=== PATIENT | female | born 1980 | race Caucasian/White ===

== ENCOUNTER 2017-08-16 19:59 | Emergency (ER) | payer OTHER ==
[~2017-08-16] VITALS: Ht 167.6 cm; Wt 78.9 kg
[~2017-08-16 19:59] MED LIST: ADVAIR 100-501 EACH INH; ADVAIR 250-501 EACH INH; ALBUTEROL1.25 MG/1 INH/SOL; BENTYL10 M1 PO; BUPROPION HCL150 MG PO; CYCLOBENZAPRINE5 M2 PO; HYDROCORTISONE2.52 TOP; MEDROL DOSEPAK1 PAC PO; MOTRIN800 MG PO; MULTIVITAMINS1 EAC9 PO; PANTOPRAZOLE SO40 MG PO; PREDNISONE 10MG10 M1 PO; PROAIR HFA8.5 GM INH; ROBITUSSIN W/CO10 ML PO; TESSALON PERLE100 M1 PO; TESSALON PERLE100 MG PO; VIBRAMYCIN 100100 MG PO; VITAMIN B-121000 MC3 PO; ZITHROMAX Z-PA250 M1 PO; ZITHROMAX250 M2 PO; ZOFRAN ODT4 M1 SL
[2017-08-16 20:29] VITALS: BP 114/76
[2017-08-16 20:51] LABS: ABSOLUTE BASOPHIL COUNT 0 /CUMM (0.0-0.2); ABSOLUTE EOSINOPHIL COUNT 0.4 /CUMM (0.0-0.7); ABSOLUTE GRANULOCYTE CT 4.6 /CUMM (1.4-6.5); ABSOLUTE LYMPH COUNT 3.1 /CUMM (1.2-3.4); ABSOLUTE MONOCYTE COUNT 0.5 /CUMM (0.10-0.60); BASOPHIL % 0.5 % (0.0-2.0); EOSINOPHIL % 4.3 % (0-5); GRANULOCYTE % 53.1 % (42.2-75.2); HEMATOCRIT 40.4 % (37-47); MEAN CORPUSCULAR HGB 29.5 PG (27.0-31.0); MEAN CORPUSCULAR HGB CONC 33.6 G/DL (33.0-37.0); MEAN PLATELET VOLUME 7.1 FL (7.4-10.4); PLATELET COUNT 409 /CUMM (130-400); RBC DISTRIBUTION WIDTH 13.8 % (11.5-14.5); WHITE BLOOD CELL COUNT 8.6 /CUMM (4.8-10.8)
--- NOTE | 2017-08-16 22:42 | ED GI/GU/ABDOMINAL COMPLAINT ---
History of Present Illness General Chief Complaint: Abdominal Pain/Flank Pain Stated Complaint: SENT BY WALKIN FOR LOWER ABD PAIN Source: patient, old records Exam Limitations: no limitations Vital Signs & Intake/Output Vital Signs & Intake/Output Vital Signs Date Time Temp Pulse Resp B/P B/P Pulse O2 O2 Flow FiO2 Mean Ox Delivery Rate 08/16 2028 96.5 77 20 114/76 97 Room Air ED Intake and Output 08/17 0000 08/16 1200 Intake Total 1000 Output Total Balance 1000 Intake, IV 1000 Patient 174 lb Weight Allergies Coded Allergies: perfume (Severe, RASH FROM `SCENTED SOAPS' 11/13/16) soap (Severe, RASH FROM `SCENTED SOAPS' 11/13/16) moxifloxacin (PT DOESNT REMEMBER 11/13/16) Penicillins (Severe, GI UPSET 11/13/16) amoxicillin (Severe, DIARRHEA, FEVER, VOMITING HOSPITALIZED FROM AUGMENTIN 03/05) clavulanic acid (From AUGMENTIN) (Severe, GI UPSET; DIARRHEA, FEVER, VOMITING, HOSPITALIZED FROM AUGME 03/05/17) Reconcile Medications Albuterol Sulfate (Proair Hfa) 90 MCG HFA.AER.AD 2 PUF INH AD PRN ASTHMA ( Reported) Albuterol Sulfate 1.25 MG/3 ML VIAL.NEB 1 Vial INH/DEMI Q4-6 PRN SOB Azithromycin (Zithromax) 250 MG TABLET 1 DP PO AD BRONCHITIS 2 the first day followed by 1 for days 2-5 Benzonatate (Tessalon Perle) 100 MG CAPSULE 1 CAP PO TID PRN COUGH Cyanocobalamin (Vitamin B-12) (Unknown Strength) TABLET (Unknown Dose) PO DAILY SUPPLEMENT (Reported) Fluticasone-Salmeterol (Advair 100-50 Diskus) 100 MCG-50 MCG/DOSE BLST.W.DEV 1 PUF INH BID ASTHMA Fluticasone/Salmeterol (Advair 250-50 Diskus) 250 MCG-50 MCG/DOSE BLST.W.DEV 1 PUF INH BID ASTHMA (Reported) Magnesium Citrate 296 ML SOLUTION 296 ML PO ONCE constipation Multiple Vitamin (Multivitamins) 1 EACH TABLET 1 TAB PO DAILY SUPPLEMENT ( Reported) Triage Note: PT SENT TO ED BY WALK IN FOR LOW ABDOMINAL PAIN, R>L "ALL DAY" ALSO C/O LOW BACK PAIN, +NAUSEA. STATES HAD UA DONE AT WALK IN, WAS TOLD WAS NEGATIVE, BUT STATES FEELS "A LOT OF PRESSURE IN LOW ABDOMEN" STATES ALSO HAS SOME RUQ [AIN WELL. PMH OF OVARIAN CYSTS Triage Nurses Notes Reviewed? yes ? N Is pt currently ? No Onset: Abrupt Duration: day(s): (1), constant, waxing and waning Timing: recent history Quality/Severity: cramping, fullness Severity Numbers: 6 Location: left lower quadrant, right lower quadrant Radiation: back Activities at Onset: none Sexually Active: Yes No Modifying Factors: none Associated Symptoms: DENIES HPI: 37-year-old female with history of ovarian cyst depression presents to the ER for evaluation complaining of bilateral lower quadrant abdominal pain radiating into her back associated nausea since today she went to the walk-in center advised her to come to the ER. She is not taken anything for her symptoms. She states this feels similar to when she's had ovarian cysts before. She has not taken anything for her pain. No association with eating or drinking. No urinary urgency frequency dysuria. Her last menstrual cycle was 3 weeks ago. No vaginal bleeding or discharge. She is sexually active (Joaquin Comer) Past History Travel History Traveled to [place] past 21 day No Medical History Any Pertinent Medical History? 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 No (Joaquin Comer) Review of Systems Review of Systems Constitutional: Reports: see HPI. Comments Review of systems: See HPI, All other systems negative. Constitutional, no chills no fever, no malaise HEENT: no sore throat no congestion, no ear pain Cardiovascular: No chest pain , no palpitation Skin: no rashes, no change in skin Respiratory: No dyspnea no cough no sputum GI: No nausea no vomiting, no diarrhea Muscle skeletal: No joint pain, no back pain, no neck pain, Neurologic: , no headache Heme/endocrine: No bruising Immunology: No lymphadenopathy (Joaquin Comer) Physical Exam Physical Exam General Appearance: well developed/nourished, no apparent distress, alert, awake Gastrointestinal: soft, non-tender Comments: Well-developed well-nourished person in no acute distress HEENT: Normal EENT exam; PERRL, EOMI, HEAD is atraumatic. moist mucous membranes. Neck: Supple, normal range of motion Back: Nontender, no CVA tenderness. Full range of motion Cardiovascular: Regular rate and rhythms no murmurs Respiratory: No respiratory distress. Patient speaking in full complete sentences. Breath sounds clear to auscultation bilaterally: NO W/R/R Abdomen: Soft, diffuse negative Rovsing's negative drop hammer operator helper sign, no appreciable organomegaly. Normal bowel sounds. No rebound/guarding Extremity: No edema, full range of motion of extremities Neuro: Alert oriented x3, motor sensory normal, There were no obvious focal neurologic abnormalities. Skin: No appreciable rash on exposed skin, skin is warm and dry. Psych: Mood and affect is normal, memory and judgment is normal. Core Measures ACS in differential dx? No Sepsis Present: No Sepsis Focused Exam Completed? No (Joaquin Comer) Progress Differential Diagnosis: appendicitis, biliary colic, bowel obstruction, colon cancer, cholecystitis, diverticulitis, ectopic , hepatitis, hernia, inflamm bowel dis, intrauterine , kidney stone, ovarian cyst, ovarian torsion, pancreatitis, peptic ulcer, PUD/GERD, perforated viscous, SBO, threatened AB, UTI/pyelo Plan of Care: Orders Procedure Date/time Status URINALYSIS 08/16 2034 Complete LIPASE 08/16 2034 Complete HUMAN BETA HCG SCREEN 08/16 2034 Complete COMPREHENSIVE METABOLIC PANEL 08/16 2034 Complete CBC WITHOUT DIFFERENTIAL 08/16 2034 Complete AMYLASE 08/16 2034 Complete Laboratory Tests 08/16/172044: Urine Color YEL, Urine Clarity CLEAR, Urine pH 7.0, Ur Specific [place] 1.015, Urine Protein NEG, Urine Ketones NEG, Urine Nitrite NEG, Urine Bilirubin NEG, Urine Urobilinogen 0.2, Ur Leukocyte Esterase NEG, Ur Microscopic EXAM NOT REQUIRED, Urine Hemoglobin NEG, Urine Glucose NEG 08/16/172041: Anion Gap 9, Estimated GFR > 60, BUN/Creatinine Ratio 16.7, Glucose 91, Calcium 9.7, Total Bilirubin 0.4, AST 15, ALT 19, Alkaline Phosphatase 71, Total Protein 6.9, Albumin 4.2, Globulin 2.7, Albumin/Globulin Ratio 1.6, Amylase 50, Lipase 122, Total Beta HCG NEGATIVE, CBC w Diff NO MAN DIFF REQ, RBC 4.60, MCV 88.0, MCH 29.5, MCHC 33.6, RDW 13.8, MPV 7.1 L, Gran % 53.1, Lymphocytes % 35.8, Monocytes % 6.3, Eosinophils % 4.3, Basophils % 0.5, Absolute Granulocytes 4.6, Absolute Lymphocytes 3.1, Absolute Monocytes 0.5, Absolute Eosinophils 0.4, Absolute Basophils 0 Labs ordered patient medicated with toradol 30 mg IV CAT scan ordered 2340 Patient reports to feeling improved with Toradol. I discussed with the patient at length all of their results. I had an extensive conversation regarding need for close follow up with their primary care physician this week as well as return precautions. I answered all of their questions, they feel comfortable with the plan and follow-up care. I discussed with the patient/family the medications that they will receive. I gave them signs and symptoms that could indicate an adverse reaction. I have advised them to limit their activities until they can see how they respond to the medication. Diagnostic Imaging: Viewed by Me: CT Scan. Discussed w/RAD: CT Scan. Radiology Impression: PATIENT: MARCELO BLANKENSHIP PRESENT AGE: 37 PATIENT ACCOUNT NO: [id number] : 80 LOCATION: [facility] ORDERING PHYSICIAN: Joaquin MURILLO SERVICE DATE: 08/16/17 EXAM TYPE: CAT - CT ABD & PELVIS W IV CONTRAST EXAMINATION: CT ABDOMEN AND PELVIS WITH CONTRAST CLINICAL INFORMATION: Right lower quadrant and left lower quadrant abdominal pain. COMPARISON: 11/14/2016. TECHNIQUE: Multidetector volumetric imaging was performed of the abdomen and pelvis following IV administration of 95 mL of Optiray 320 intravenous contrast. Sagittal and coronal reformatted images were obtained on the technologist's workstation. DLP: 322 mGy-cm FINDINGS: LUNG BASES : The visualized lung bases are unremarkable. LIVER, GALLBLADDER, AND BILIARY TREE: The liver is normal in size, shape, and attenuation. No focal hepatic lesion or biliary ductal dilatation is present. The gallbladder is unremarkable with no evidence of radiopaque gallstones, gallbladder wall thickening, or obvious pericholecystic inflammatory changes. PANCREAS: Unremarkable. SPLEEN: Unremarkable. ADRENAL GLANDS: Unremarkable. KIDNEYS AND URETERS: The kidneys are normal in size, shape, and attenuation. No hydronephrosis, hydroureter, or calculi seen. No perinephric stranding. BLADDER: Unremarkable. GASTROINTESTINAL TRACT: The stomach is unremarkable. The small bowel is normal in caliber. There is no obstruction. There is a normal appendix. No colonic wall thickening or inflammatory change. Mild to moderate colonic stool burden. No free air or free fluid. ABDOMINAL WALL: No significant hernia is appreciated. LYMPH NODES: Normal. VASCULAR: Unremarkable. PELVIC VISCERA: The uterus is unremarkable. No adnexal mass. 1.8 cm peripherally enhancing left ovarian follicle.. OSSEOUS STRUCTURES: No acute or suspicious osseous abnormality. IMPRESSION: No acute findings of the abdomen or pelvis. No inflammatory changes. Normal appendix. DICTATED BY: Ernesto Prince MD DATE/TIME DICTATED:08/16/172329 KNITTER MACHINE:MAYTE DATE/TIME TRANSCRIBED:08/16/172329 CONFIDENTIAL, DO NOT COPY WITHOUT APPROPRIATE AUTHORIZATION. <Electronically signed in Other Vendor System> SIGNED BY: Ernesto Prince MD 08/16/172336 Initial ED EKG: none (Joaquin Comer) Departure Departure Time of Disposition: 2344 Disposition: HOME OR SELF CARE Condition: Stable Clinical Impression Primary Impression: Abdominal pain Referrals: Tiffanie MURILLO,Alessandra Melendez (PCP/Family) Additional Instructions: Follow-up with your primary care physician as well as her solar fabrication technician if symptoms persist. Stool softeners as discussed or drink plenty of fluids Tylenol Motrin for pain. Magnesium citrate as discussed. Return to the emergency room anytime sooner with any concerns. Departure Forms: Customer Survey General Discharge Information Prescriptions: Current Visit Scripts Magnesium Citrate 296 ML PO ONCE #296 ML (Joaquin Comer) PA/TOW TRUCK OPERATOR Co-Sign Statement Statement: ED Attending supervision documentation- [] I saw and evaluated the patient. I have also reviewed all the pertinent lab results and diagnostic results. I agree with the findings and the plan of care as documented in the PA's/TOW TRUCK OPERATOR's documentation. [x] I have reviewed the ED Record and agree with the PA's/TOW TRUCK OPERATOR's documentation. [] Additions or exceptions (if any) to the PAs/TOW TRUCK OPERATOR's note and plan are summarized below: [] (Felix MESA,Edmund Valadez)
--- NOTE | 2017-08-16 23:37 | CT SCAN REPORT ---
EXAMINATION: CT ABDOMEN AND PELVIS WITH CONTRAST CLINICAL INFORMATION: Right lower quadrant and left lower quadrant abdominal pain. COMPARISON: 11/14/2016. TECHNIQUE: Multidetector volumetric imaging was performed of the abdomen and pelvis following IV administration of 95 mL of Optiray 320 intravenous contrast. Sagittal and coronal reformatted images were obtained on the technologist's workstation. DLP: 322 mGy-cm FINDINGS: LUNG BASES: The visualized lung bases are unremarkable. LIVER, GALLBLADDER, AND BILIARY TREE: The liver is normal in size, shape, and attenuation. No focal hepatic lesion or biliary ductal dilatation is present. The gallbladder is unremarkable with no evidence of radiopaque gallstones, gallbladder wall thickening, or obvious pericholecystic inflammatory changes. PANCREAS: Unremarkable. SPLEEN: Unremarkable. ADRENAL GLANDS: Unremarkable. KIDNEYS AND URETERS: The kidneys are normal in size, shape, and attenuation. No hydronephrosis, hydroureter, or calculi seen. No perinephric stranding. BLADDER: Unremarkable. GASTROINTESTINAL TRACT: The stomach is unremarkable. The small bowel is normal in caliber. There is no obstruction. There is a normal appendix. No colonic wall thickening or inflammatory change. Mild to moderate colonic stool burden. No free air or free fluid. ABDOMINAL WALL: No significant hernia is appreciated. LYMPH NODES: Normal. VASCULAR: Unremarkable. PELVIC VISCERA: The uterus is unremarkable. No adnexal mass. 1.8 cm peripherally enhancing left ovarian follicle.. OSSEOUS STRUCTURES: No acute or suspicious osseous abnormality. IMPRESSION: No acute findings of the abdomen or pelvis. No inflammatory changes. Normal appendix.
[2017-08-16] MEDS ORDERED: MAGNESIUM CITR296 ML PO (23:46)
== END 2017-08-17 00:03 ==
LOC: ERH 19:59
PROVIDERS: Emergency Medicine
DX: R10.32 Left lower quadrant pain (principal); R10.31 Right lower quadrant pain
CPT/HCPCS: 74177; 81003; 96374; J1885

== ENCOUNTER 2017-09-25 22:10 | Emergency (ER) | payer OTHER ==
[~2017-09-25] VITALS: Ht 167.6 cm; Wt 79.4 kg
[~2017-09-25 22:10] MED LIST changes: +MAGNESIUM CITR296 ML PO; +PERCOCET 5-3251 EACH PO; +SERTRALINE HCL100 MG PO
[2017-09-25 22:58] VITALS: BP 106/63
--- NOTE | 2017-09-26 01:12 | ED GI/GU/ABDOMINAL COMPLAINT ---
History of Present Illness General Chief Complaint: Abdominal Pain/Flank Pain Stated Complaint: ABD PAIN Source: patient Exam Limitations: no limitations Vital Signs & Intake/Output Vital Signs & Intake/Output Vital Signs Date Time Temp Pulse Resp B/P B/P Pulse O2 O2 Flow FiO2 Mean Ox Delivery Rate 09/25 2258 97.1 89 18 106/63 98 Room Air ED Intake and Output 09/26 0000 09/25 1200 Intake Total Output Total Balance Patient 175 lb Weight Weight Reported by Patient Measurement Method Allergies Coded Allergies: perfume (Severe, RASH FROM `SCENTED SOAPS' 11/13/16) soap (Severe, RASH FROM `SCENTED SOAPS' 11/13/16) moxifloxacin (PT DOESNT REMEMBER 11/13/16) Penicillins (Severe, GI UPSET 11/13/16) amoxicillin (Severe, DIARRHEA, FEVER, VOMITING HOSPITALIZED FROM AUGMENTIN 03/05) clavulanic acid (From AUGMENTIN) (Severe, GI UPSET; DIARRHEA, FEVER, VOMITING, HOSPITALIZED FROM AUGME 03/05/17) Reconcile Medications Albuterol Sulfate (Proair Hfa) 90 MCG HFA.AER.AD 2 PUF INH AD PRN ASTHMA ( Reported) Albuterol Sulfate 1.25 MG/3 ML VIAL.NEB 1 Vial INH/DEMI Q4-6 PRN SOB Fluticasone/Salmeterol (Advair 250-50 Diskus) 250 MCG-50 MCG/DOSE BLST.W.DEV 1 PUF INH BID ASTHMA (Reported) Oxycodone HCl/Acetaminophen (Percocet 5-325 MG Tablet) 5 MG-325 MG TABLET 1-2 TAB PO Q6P PRN PAIN Sertraline HCl 100 MG TABLET 1 TAB PO DAILY MENTAL HEALTH (Reported) Triage Note: PT SENT TO ED BY OB, DR SABILLON, FOR RETURNED [facility] LOW ABD PIMICHAELA TO "SHOOTS UP MY VAGINA". HAS HAD OFF AND ON SINCE TREATMENT FOR ECTOPIC . STATES LAST METHTREXATE WAS APPROX 1.5 WEEKS AGO. "I'VE BEEN BLEEDING FOR A WEEK" Triage Nurses Notes Reviewed? yes ? n Is pt currently ? No Onset: Gradual Duration: week(s): Timing: recent history Quality/Severity: cramping Location: suprapubic Radiation: no radiation Activities at Onset: none Associated Symptoms: cramping, vaginal bleeding HPI: 37 yo woman h/o ectopic , given methotrexate on 09/06, 09/16, presents with continued vaginal bleeding. She notes that she went through 4 pads today. She has no nausea, vomiting, diarrhea, dizziness. She is otherwise well. Past History Travel History Traveled to [place] past 21 day No Medical History Any Pertinent Medical History? see below for history Neurological: NONE EENT: NONE Cardiovascular: NONE Respiratory: asthma Gastrointestinal: NONE Hepatic: NONE Renal: NONE Musculoskeletal: TENDONITIS IN WRIST Psychiatric: depression Endocrine: NONE Blood Disorders: NONE Cancer(s): NONE RN NURSERY/Reproductive: OVARIAN CYST ECTOPIC Tetanus Vaccine: 09/25/13 Surgical History Surgical History: non-contributory, N Psychosocial History Who do you live with Other (see notes) What is your primary language Zambian Tobacco Use: Current Daily Use Daily Tobacco Use Amount/Type: => 5 Cigarettes daily ETOH Use: occasional use Illicit Drug Use: denies illicit drug use Family History Hx Contributory? No Review of Systems Review of Systems Constitutional: Reports: no symptoms. EENTM: Reports: no symptoms. Respiratory: Reports: no symptoms. Cardiovascular: Reports: no symptoms. GI: Reports: no symptoms. Genitourinary: Reports: no symptoms. Musculoskeletal: Reports: no symptoms. Skin: Reports: no symptoms. Neurological/Psychological: Reports: no symptoms. Hematologic/Endocrine: Reports: no symptoms. Immunologic/Allergic: Reports: no symptoms. All Other Systems: Reviewed and Negative Physical Exam Physical Exam General Appearance: well developed/nourished, no apparent distress Head: atraumatic, normal appearance Eyes: Bilateral: normal appearance. Ears, Nose, Throat, Mouth: hearing grossly normal Neck: normal inspection Respiratory: normal breath sounds, chest non-tender, no respiratory distress, quiet respiration, lungs clear Cardiovascular: regular rate/rhythm Gastrointestinal: normal bowel sounds, soft, mild suprapubic tenderness to palpation. Pelvic: pt declines Back: normal inspection Extremities: normal range of motion Neurologic/Psych: no motor/sensory deficits, awake, alert, oriented x 3 Skin: intact, normal color, warm/dry Core Measures ACS in differential dx? No Sepsis Present: No Sepsis Focused Exam Completed? No Progress Differential Diagnosis: ectopic vs other. Plan of Care: Orders Procedure Date/time Status Add-on Test (ER Only) 09/26 0112 Active HUMAN BETA HCG TITRE 09/26 0051 Complete URINALYSIS 05/27 2302 Complete LIPASE 09/25 2301 Complete HEPATIC FUNCTION PANEL 09/25 2301 Complete HUMAN BETA HCG SCREEN 09/25 2301 Complete CBC WITHOUT DIFFERENTIAL 09/25 2301 Complete BASIC METABOLIC PANEL 09/25 2301 Complete AMYLASE 09/25 2301 Complete Current Medications Sig/Ana Laura Start time Last Medication Dose Stop Time Status Admin Ketorolac 60 MG ONCE ONE 09/26 0130 UNVr 09/26 Tromethamine 09/26 0131 0126 (Toradol) Laboratory Tests 09/26/17 0055: Urinalysis LIGHT H, Urine Color STRAW, Urine Clarity CLEAR, Urine pH 6.0, Ur Specific [place] 1.010, Urine Protein NEG, Urine Ketones NEG, Urine Nitrite NEG, Urine Bilirubin NEG, Urine Urobilinogen 0.2, Ur Leukocyte Esterase NEG, Ur Microscopic SEDIMENT EXAMINED, Urine RBC 1-3, Urine WBC 1-3 H, Ur Epithelial Cells MOD H, Urine Mucus RARE, Urine Hemoglobin TRACE-INTACT, Urine Glucose NEG 09/26/17 0051: Anion Gap 10, Estimated GFR > 60, BUN/Creatinine Ratio 15.0, Glucose 95, Calcium 9.4, Total Bilirubin 0.3, Direct Bilirubin 0.2, AST 15, ALT 23, Alkaline Phosphatase 57, Total Protein 6.1 L, Albumin 3.6, Amylase 36, Lipase 75, Beta HCG, Quant 600.1, Total Beta HCG POSITIVE, CBC w Diff NO MAN DIFF REQ, RBC 4.29, MCV 88.4, MCH 30.2, MCHC 34.1, RDW 14.5, MPV 7.1 L, Gran % 59.2, Lymphocytes % 31.8, Monocytes % 5.8, Eosinophils % 2.7, Basophils % 0.5, Absolute Granulocytes 6.3, Absolute Lymphocytes 3.4, Absolute Monocytes 0.6, Absolute Eosinophils 0.3, Absolute Basophils 0.1 Diagnostic Imaging: Viewed by Me: Ultrasound. Discussed w/RAD: Ultrasound. Radiology Impression: PATIENT: MARCELO BLANKENSHIP PRESENT AGE: 37 PATIENT ACCOUNT NO: [id number] : 80 LOCATION: [facility] ORDERING PHYSICIAN: Edmond Collazo MD SERVICE DATE: 09/21/17 EXAM TYPE: US - US-PELVIC NATHAN EXAMINATION: US PELVIS, LIMITED CLINICAL INFORMATION: Patient has taken second dose of methotrexate approximately 2 weeks ago. Pelvic pain. Evaluate for free fluid. Question ruptured ectopic . COMPARISON: Pelvic ultrasound from 09/06/2017. TECHNIQUE: Limited targeted evaluation of the 4 quadrants in the abdomen. FINDINGS: No free fluid is visible. Examination is extremely limited. A left-sided pleural effusion is partially visualized. There may be a right-sided pleural effusion, though difficult to assess. IMPRESSION: No free fluid on this limited study. Partially visualized left-sided pleural effusion. DICTATED BY: Edmond Anders MD DATE/TIME DICTATED:09/21/171100 ARMORED SERVICE TECHNICIAN:MAYTE DATE/TIME TRANSCRIBED:09/21/171100 CONFIDENTIAL, DO NOT COPY WITHOUT APPROPRIATE AUTHORIZATION. <Electronically signed in Other Vendor System> Initial ED EKG: none Departure Departure Disposition: HOME OR SELF CARE Condition: Stable Clinical Impression Primary Impression: Ectopic Secondary Impressions: Vaginal bleeding Referrals: Alessandra Estrada (PCP/Family) Departure Forms: Customer Survey General Discharge Information Comments 09/26/17, 2:52am... pt resting comfortably in the ED... she declines pelvic exam... hcg trending downwards, hct stable... pt safe for discharge with close follow up advised.
[2017-09-26 01:14] LABS: ABSOLUTE BASOPHIL COUNT 0.1 /CUMM (0.0-0.2); ABSOLUTE EOSINOPHIL COUNT 0.3 /CUMM (0.0-0.7); ABSOLUTE GRANULOCYTE CT 6.3 /CUMM (1.4-6.5); ABSOLUTE LYMPH COUNT 3.4 /CUMM (1.2-3.4); ABSOLUTE MONOCYTE COUNT 0.6 /CUMM (0.10-0.60); BASOPHIL % 0.5 % (0.0-2.0); EOSINOPHIL % 2.7 % (0-5); GRANULOCYTE % 59.2 % (42.2-75.2); HEMATOCRIT 37.9 % (37-47); MEAN CORPUSCULAR HGB 30.2 PG (27.0-31.0); MEAN CORPUSCULAR HGB CONC 34.1 G/DL (33.0-37.0); MEAN CORPUSCULAR VOLUME 88.4 FL (81.0-99.0); MEAN PLATELET VOLUME 7.1 FL (7.4-10.4); PLATELET COUNT 413 /CUMM (130-400); RBC DISTRIBUTION WIDTH 14.5 % (11.5-14.5); RED BLOOD CELL CT 4.29 /CUMM (4.20-5.40); WHITE BLOOD CELL COUNT 10.7 /CUMM (4.8-10.8)
== END 2017-09-26 03:02 ==
LOC: ERH 22:10
PROVIDERS: Pediatrics
DX: O00.90 Unspecified ectopic pregnancy without intrauterine pregnancy (principal)
CPT/HCPCS: 81001; 96372; J1885